=== PATIENT | female | born 1970 | race African-American/Black ===

== ENCOUNTER 2017-04-19 05:25 | Inpatient (IN) | payer OTHER ==
[2017-04-17 12:38] LABS: HEMATOCRIT 31.4 % (36.0-47.0); MEAN CORPUSCULAR HEMOGLOBIN 29.4 pg (27.0-33.4); MEAN CORPUSCULAR HGB CONC 31.9 g/dL (32.0-36.0); MEAN CORPUSCULAR VOLUME 92 fl (80-97); PLATELET COUNT 147 10^3/uL (150-450); RED CELL DISTRIBUTION WIDTH 14.3 % (11.5-14.0); WHITE BLOOD COUNT 8.9 10^3/uL (4.0-10.5)
[2017-04-17 12:50] LABS: APPEARANCE,URINE CLEAR; BILIRUBIN,URINE NEGATIVE (NEGATIVE); COLOR,URINE YELLOW; GLUCOSE, URINE NEGATIVE (NEGATIVE); KETONES,URINE NEGATIVE (NEGATIVE); LEUKOCYTE ESTERASE,URINE NEGATIVE (NEGATIVE); NITRITE,URINE NEGATIVE (NEGATIVE); PROTEIN,URINE NEGATIVE (NEGATIVE); URINE SPECIFIC GRAVITY 1.018; UROBILINOGEN,URINE NEGATIVE mg/dL (<2.0)
[2017-04-17 13:05] LABS: ANION GAP 11 (5-19); BLOOD UREA NITROGEN 8 mg/dL (7-20); CALCIUM 9.2 mg/dL (8.4-10.2); CARBON DIOXIDE 23 mmol/L (22-30); CHLORIDE 106 mmol/L (98-107); GLUCOSE 82 mg/dL (75-110); POTASSIUM 4.1 mmol/L (3.6-5.0); SODIUM 139.5 mmol/L (137-145)
--- NOTE | 2017-04-17 13:13 | RADIOLOGY REPORT (SQ) ---
EXAM DESCRIPTION: CHEST PA/LATERAL COMPLETED DATE/TIME: 04/17/2017 12:41 pm REASON FOR STUDY: PRE-OP COMPARISON: 12/03/2014. EXAM PARAMETERS: NUMBER OF VIEWS: two views TECHNIQUE: Digital Frontal and Lateral radiographic views of the chest acquired. RADIATION DOSE: NA LIMITATIONS: none FINDINGS: LUNGS AND PLEURA: No opacities, masses or pneumothorax. No pleural effusion. MEDIASTINUM AND HILAR STRUCTURES: No masses or contour abnormalities. HEART AND VASCULAR STRUCTURES: Heart normal size. No evidence for failure. BONES: No acute findings. HARDWARE: None in the chest. OTHER: No other significant finding. IMPRESSION: NO SIGNIFICANT RADIOGRAPHIC FINDING IN THE CHEST. TECHNICAL DOCUMENTATION: JOB ID: [id number] [employer]- All Rights Reserved
--- NOTE | 2017-04-17 15:14 | EKG REPORT ---
SEVERITY:- ABNORMAL ECG - SINUS RHYTHM LVH WITH SECONDARY REPOLARIZATION ABNORMALITY : Confirmed by: Deion Yousif 17-Apr-2017 15:13:45
[~2017-04-19 05:25] MED LIST: CEFAZOLIN 1 GM/D5W RTU 1 GM/50 ML RTUPB IV PRN; LACTATED RINGERS 1000 ML IV PRN; LIDOCAINE 0.5% INJ-PF (5 MG/ML) 50 ML SDV SUBCUT PRN
[2017-04-19] MEDS ORDERED: BUPIVACAINE INJ/PF LIPOSOME/PF 266 MG/20 ML SDV ONE (06:50)
[2017-04-19] MEDS ORDERED: ACETAMINOPHEN 100 ML IV ONE (07:08)
[2017-04-19] MEDS ORDERED: FENTANYL CITRATE INJ/PF 250 MCG/5 ML AMPULE ONE (07:08)
[2017-04-19] MEDS ORDERED: PROPOFOL INJ 200 MG/20 ML VIAL IV ONE (07:08)
[2017-04-19] MEDS ORDERED: MIDAZOLAM 2 MG/2 ML INJ ONE (07:08)
[2017-04-19] MEDS ORDERED: FENTANYL CITRATE INJ/PF 100 MCG/2 ML AMPUL IV PRN ×3 (07:46)
[2017-04-19] MEDS ORDERED: MEPERIDINE HCL/PF INJ 25 MG/1 ML DISP.SYRIN IV PRN (07:46)
[2017-04-19] MEDS ORDERED: DIPHENHYDRAMINE HCL 50 MG/ML VIAL IV PRN (07:46)
[2017-04-19] MEDS ORDERED: MORPHINE SULFATE 10 MG/ML INJ IV PRN (07:46)
[2017-04-19] MEDS ORDERED: PROMETHAZINE HCL INJ 25 MG/1 ML VIAL IV PRN ×2 (07:46)
[2017-04-19] MEDS: FENTANYL CITRATE INJ/PF 100 MCG/2 ML AMPUL ONE ×2 (09:30→09:45)
[2017-04-19] MEDS ORDERED: HYDROMORPHONE HCL INJ/PF 2 MG/ML AMPULE ONE (10:03)
[2017-04-19] MEDS ORDERED: PROMETHAZINE HCL INJ 25 MG/1 ML VIAL IM PRN (10:59)
[2017-04-19] MEDS: CEFAZOLIN 1 GM/D5W RTU 1 GM/50 ML RTUPB IV SCH ×2 (11:59→17:34)
[2017-04-19] MEDS: IBUPROFEN 800 MG TABLET PO SCH ×2 (13:16→17:34)
--- NOTE | 2017-04-19 14:28 | OPERATIVE REPORT E ---
Operative Report NAME: ERICK HAYNES : 1970 AGE: 47Y DATE OF SURGERY: 04/19/2017 ROOM: 216 PREOPERATIVE DIAGNOSIS: Uterine leiomyoma. POSTOPERATIVE DIAGNOSES: 1. Uterine leiomyoma. 2. Pelvic adhesions. PROCEDURE: MIRACLE/BSO. SURGEON: GABBY LUCAS M.D. COMPLICATIONS: None. ANESTHESIA: General endotracheal. FINDINGS: A 14-week size uterus, adhered right ovary to the sidewall, normal-appearing left tube and ovary. Normal ureter course well out of the operative field. INDICATIONS FOR PROCEDURE: The patient had symptomatic uterine leiomyoma, desired tentative definitive therapy. Abdominal approach was chosen due to the cervix basically out of the pelvis superior to the bladder anteriorly. The usual risks of bleeding, infection, anesthesia, and damage to organs and tissues were discussed and the patient understood. DESCRIPTION OF PROCEDURE: The patient was taken to the operating room and placed in the modified lithotomy position. After adequate anesthesia ascertained, prepped and draped in the usual manner for an abdominal hysterectomy. Pacheco catheter inserted. Surgical timeout performed. EUA performed. Antibiotics had been given, and through a Pfannenstiel incision, subcutaneous fat and fascia, the peritoneum was entered without difficulty. The incision was extended superiorly and inferiorly and all the contents were packed out of the pelvis. The pelvic contents were palpated and noted to be normal. The uterus was brought into the operative field after a self-retaining retractor had been placed and packs placed. The above noted findings were appreciated. Using a LigaSure advance device and suture ligation through the duration of the case, the round ligaments were cut and held. The utero-ovarian ligament on the right was cut and the right tube and ovary were removed at a later time. This work was done down to the level of the uterine vessels, which were inclusive of the infundibulopelvic ligament on the left down to the uterine vessels and cervix was with sharp and blunt dissection of the bladder and the bladder was advanced sequentially. Ultimately, the vagina was entered and the cuff was held. Cervix and uterus, left tube and ovary handed off the operative field. The vaginal cuff was then closed with interrupted #1 catgut. A small venous bleeder noted on the left was recalcitrant and eventually required hemoclips and 123 suture to control. The was again confirmed out of the operative field bilaterally. Attention was then turned to the right ovary, which was densely adherent to the right sidewall. was noted to be approximately 1.5 inches away from the surgical area. The infundibulopelvic ligament was then located and cauterized. This allowed shelling out of the densely adherent right ovary from the sidewall and using blunt dissection. Good hemostasis was noted at this aspect of the procedure. The right tube and ovary handed off as separate specimen. Good hemostasis was confirmed at this aspect of the procedure. The instruments were removed. The fascia was then closed with a #1 PDS suture, , and skin shaunna. At the completion of the procedure, all sponge and needle counts were correct. DICTATING PHYSICIAN: GABBY LUCAS M.D. [id number] PHY#: [id number] ID: [id number] JOB#: [id number] ACCT: [id number] cc:GABBY LUCAS M.D. >
[2017-04-19] MEDS ORDERED: HYDROMORPHONE HCL 2 MG TABLET PO PRN (15:51)
[2017-04-19] MEDS ORDERED: HYDROMORPHONE HCL INJ/PF 2 MG/ML AMPULE INJ PRN (15:51)
[2017-04-19] MEDS ORDERED: HYDROCODONE/ACETAMINOPHEN 5-325 MG TABLET PO PRN (16:05)
[2017-04-19] MEDS ORDERED: ROCURONIUM BROMIDE INJ 50 MG/5 ML VIAL IV ONE (16:39)
[2017-04-19] MEDS ORDERED: DEXAMETHASONE SOD PHOSPHATE INJ 4 MG/1 ML VIAL ONE (16:39)
[2017-04-19] MEDS ORDERED: LIDOCAINE 2% INJ-PF (20 MG/ML) 2 ML AMPUL ONE (16:39)
[2017-04-19] MEDS ORDERED: ONDANSETRON HCL INJ/PF 4 MG/2 ML SDV ONE (16:39)
[2017-04-19] MEDS ORDERED: SUCCINYLCHOLINE CHLORIDE INJ 200 MG/10 ML VIAL ONE (16:39)
[2017-04-19] MEDS ORDERED: KETOROLAC TROMETHAMINE 60 MG/2 ML SDV ONE (16:39)
[2017-04-19] MEDS: HYDROCODONE/ACETAMINOPHEN 5-325 MG TABLET PO PRN (17:34)
[2017-04-20] MEDS: HYDROCODONE/ACETAMINOPHEN 5-325 MG TABLET PO PRN ×2 (00:08→09:02)
[2017-04-20] MEDS: IBUPROFEN 800 MG TABLET PO SCH (09:02)
--- NOTE | 2017-04-20 09:09 | DISCHARGE SUMMARY E ---
Discharge Summary NAME: ERICK HAYNES : 1970 AGE: 47Y ADMITTED: 04/19/2017 DISCHARGED: HOSPITAL COURSE: This is a 47-year-old female admitted for total abdominal hysterectomy with bilateral salpingo-oophorectomy for symptomatic 14-week size uterus and uterine fibroids. The patient underwent same day admission, exploratory laparotomy, MIRACLE/BSO. Estimated blood loss approximately 150 mL. Patient did well postoperatively, ambulatory, regular diet, no evidence of DVT. Incision was clean. Pathology pending at time of dictation. DISPOSITION: Return to the office in 1 week. FINAL IMPRESSION: Uterine leiomyoma. PROCEDURE: MIRACLE/BSO. DICTATING PHYSICIAN: GABBY LUCAS M.D. [id number] PHY#: [id number] ID: [id number] JOB#: [id number] ACCT: [id number] cc:GABBY LUCAS M.D. >
[2017-04-20 09:57] LABS: HEMATOCRIT 22.6 % (36.0-47.0); MEAN CORPUSCULAR HEMOGLOBIN 29.6 pg (27.0-33.4); MEAN CORPUSCULAR HGB CONC 32.1 g/dL (32.0-36.0); MEAN CORPUSCULAR VOLUME 92 fl (80-97); PLATELET COUNT 144 10^3/uL (150-450); RED BLOOD COUNT 2.45 10^6/uL (3.72-5.28); RED CELL DISTRIBUTION WIDTH 13.9 % (11.5-14.0); WHITE BLOOD COUNT 8.7 10^3/uL (4.0-10.5)
[2017-04-20 10:09] LABS: HEMOGLOBIN 7.3 g/dL (12.0-15.5)
[2017-04-20 11:21] VITALS: BP 130/82
== END 2017-04-20 12:33 | disposition home or self-care (01) | DRG 743 ==
LOC: INOR 05:25 → 2S 10:58
PROVIDERS: ADMIT Specialist; ATTEND Specialist
PROC: 0UT20ZZ Resection of Bilateral Ovaries, Open Approach (ICD-10-PCS; 2017-04-19)
PROC: 0UT70ZZ Resection of Bilateral Fallopian Tubes, Open Approach (ICD-10-PCS; 2017-04-19)
PROC: 0DNW0ZZ Release Peritoneum, Open Approach (ICD-10-PCS; 2017-04-19)
PROC: 0UT90ZZ Resection of Uterus, Open Approach (ICD-10-PCS; principal; 2017-04-19 07:15)
DX: D25.0 Submucous leiomyoma of uterus (principal); N73.6 Female pelvic peritoneal adhesions (postinfective); J45.909 Unspecified asthma, uncomplicated
CPT/HCPCS: 36415; 71046; 80048; 81001; 81025; 840; 85027; 86850; 86900; 86901; 88307; 93005; 93010; 94799; C9290; J0131; J0330; J0690; J1100; J1170; J1885; J2250; J2405; J2704; J3010; J3490